=== PATIENT | male | born 1990 | race African-American/Black ===

== ENCOUNTER 2018-02-03 21:04 | Emergency (ER) | payer BC ==
[2018-02-03] MEDS: HYDROCODONE/APAP (5/325) TAB PO (22:24)
[2018-02-03] MEDS: FLUORESCEIN STRIP BOTH EYES (22:30)
[2018-02-03] MEDS: TETRACAINE 0.5% 4 ML OPH BOTH EYES (22:30)
== END 2018-02-04 00:23 | disposition home or self-care (01) ==
LOC: FTE 02-04 00:23
DX: H57.8 Other specified disorders of eye and adnexa (principal)
CPT/HCPCS: 99283; Z7610